=== PATIENT | male | born 1975 | race Caucasian/White ===

== ENCOUNTER 2020-02-14 16:29 | Emergency (ER) | payer SELFPAY ==
[2020-02-14 16:31] VITALS: BP 167/114; PULSE 100; RESP 18; TEMP 36.5; O2SAT 99; BMI 28.9
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
[2020-02-14] MEDS: 0.9% Normal Saline 1,000 ML 150 ML IV (16:49)
[2020-02-14] MEDS: fentaNYL 100 MCG/2 ML Ampul 50 MCG IV (16:49)
[2020-02-14] MEDS: Ondansetron 4 MG/2 ML Vial IV (16:49)
[2020-02-14 16:50] LABS: Absolute Lymphocyte Count 3.11 X10^3/uL (0.83-4.51); Absolute Neutrophil Count 6.8 X10^3/uL (2.0-7.7); Basophil# 0.11 X10^3/uL; Eosinophil# 0.22 X10^3/uL; Hemoglobin 14.2 g/dL (13.0-16.5); Lymphocyte # 3.11 X10^3/ul (4.0); Lymphocyte % 28.4 % (19-41); Mean Corpuscular Hgb 32.7 pg (27.0-32.0); Mean Corpuscular Volume 99.1 fL (80-94); Mean Platelet Vol. 9.9 fl (6.2-12.0); Monocyte# 0.74 X10^3/uL; Monocyte% 6.7 % (0-10); NRBC Flagged by Analyzer 0 % (0-5); Neutrophil # 6.76 X10^3/uL (2.7-7.7); Neutrophil % 61.6 % (47-70); Platelet Count 306 K/mm3 (150-450); RBC Distribution Width CV 12.3 % (11.6-14.6); RBC Distribution Width SD 44.9 fl (35.1-43.9); Red Blood Count 4.34 M/mm3 (4.6-6.2)
[2020-02-14 16:51] VITALS: O2SAT 99
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
[2020-02-14 17:18] LABS: AST(SGOT) 14 U/L (15-37); Alanine Aminotransfer ALT/SGPT 14 U/L (16-61); Albumin, Serum 4.3 g/dL (3.2-5.0); Alkaline Phosphatase 103 U/L (45-117); Anion Gap 6 (5-15); BUN 9 mg/dL (7-18); BUN/Creat Ratio 7.3 RATIO (10-20); Bilirubin, Direct 0.12 mg/dL (0.00-0.30); Calcium,Total 8.9 mg/dL (8.5-10.1); Chloride 107 mmol/L (98-107); Creatinine, Serum 1.23 mg/dL (0.70-1.30); EST Glomerular Filtration Rate 68 mL/min (>60); Est Glom Filt Rate - Afr Amer 82 mL/min (>60); Estimated Creatinine Clearance 73.37 ml/min; Globulin 3.5 g/dL (2.2-4.2); Glucose 96 mg/dL (74-106); Potassium 4.2 mmol/L (3.5-5.1); Protein, Total 7.8 g/dL (6.4-8.2); Sodium Level 139 mmol/L (136-145)
[2020-02-14 17:39] VITALS: BP 140/81; PULSE 85; RESP 16; O2SAT 98
[2020-02-14 18:03] LABS: International Normalized Ratio 1.1; Prothrombin Time (Protime)PT. 13.5 SECONDS (11.7-14.9)
[2020-02-14 18:04] LABS: Partial Thromboplast Time 27.2 Seconds (24.1-36.2)
[2020-02-14] MEDS: Naproxen 500 MG Tablet PO (18:14)
[2020-02-14] MEDS: HYDROcodone Bitartrate/Apap 5/325 Tablet PO (18:14)
[2020-02-14 18:15] VITALS: BP 140/93; PULSE 95; RESP 16; O2SAT 100
[2020-02-14 19:07] VITALS: BP 127/84; PULSE 74; RESP 19; O2SAT 100
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
[2020-02-14 19:59] VITALS: BP 128/76; PULSE 78; RESP 16; O2SAT 98
== END 2020-02-14 20:00 | disposition home or self-care (01) ==
PROVIDERS: Emergency Provider Emergency Medicine
DX: S39.012A Strain of muscle, fascia and tendon of lower back, initial encounter (principal); V63.5XXA Driver of heavy transport vehicle injured in collision with car, pick-up truck or van in traffic accident, initial encounter; Y93.9 Activity, unspecified; Y92.9 Unspecified place or not applicable; F17.200 Nicotine dependence, unspecified, uncomplicated
CPT/HCPCS: 70450; 71045; 71260; 72125; 74177; 80048; 80076; 85025; 85610; 85730; 93005; 96361; 96374; 96375; 99285; J7030; Q9967; A4216; J2405